=== PATIENT | male | born 1970 | race Two or more races ===

== ENCOUNTER 2016-12-27 08:40 | Emergency (ER) | payer MEDICARE ==
[~2016-12-27] VITALS: Ht 167.6 cm; Wt 85.0 kg
[2016-12-27] MEDS ORDERED: LISI10TA4 PO (09:11)
[2016-12-27] MEDS ORDERED: BUPR150T3 PO (09:11)
[2016-12-27] MEDS ORDERED: CLON0.5T PO (09:11)
[2016-12-27] MEDS ORDERED: METF500T13 PO (09:11)
[2016-12-27] MEDS ORDERED: RISP4TAB33 PO (09:11)
[2016-12-27] MEDS ORDERED: DEPA250T32 PO (09:11)
[2016-12-27] MEDS ORDERED: OMEP40CA2 PO (09:11)
[2016-12-27] MEDS ORDERED: TRAZ-136 PO (09:11)
[2016-12-27] MEDS ORDERED: MORPHINE 2 MG/ML 1ML SYRINGE IV PRN (11:00)
[2016-12-27] MEDS ORDERED: NS 1,000 ML IV ONE (11:00)
[2016-12-27] MEDS ORDERED: ONDANSETRON 4MG/2ML VIAL (J2405) IV ONE (11:00)
[2016-12-27 11:09] LABS: BASO # 0.1 K/mm3 (0.0-0.2); BASO % 0.8 % (0.0-1.0); EOS # 0.1 K/mm3 (0.0-0.50); EOS % 0.7 % (0.0-3.0); LARGE UNSTAINED CELL # 0.1 K/mm3 (0.0-0.4); LARGE UNSTAINED CELL % 0.7 % (0.0-4.0); LYMPH # 1.7 K/mm3 (1.5-4.5); LYMPH % 14.1 % (24.0-44.0); MEAN CORPUSCULAR HEMOGLOBIN 36.6 pg (27.0-33.0); MEAN CORPUSCULAR VOLUME 100.1 fl (80.0-96.0); MONO # 0.3 K/mm3 (0.0-0.8); MONO % 2.7 % (0.0-5.0); NEUTROPHILS # 9.7 K/mm3 (1.8-7.7); PLATELET COUNT, AUTOMATED 241 k/mm3 (150-450); RED CELL DISTRIBUTION WIDTH 12.3 % (11.5-14.5)
[2016-12-27 11:14] LABS: MEAN CORPUSCULAR HGB CONC 36.6 g/dl (32.0-36.5)
[2016-12-27 11:39] LABS: ALBUMIN 3.8 GM/DL (3.2-5.2); ALBUMIN/GLOBULIN RATIO 1.12 (1.00-1.93); ALKALINE PHOSPHATASE 55 U/L (45-117); ALT/SGPT 22 U/L (12-78); ANION GAP 7 MEQ/L (8-16); AST/SGOT 9 U/L (15-37); BILIRUBIN,DIRECT 0.2 MG/DL (0.0-0.2); BILIRUBIN,TOTAL 0.6 MG/DL (0.2-1.0); BLOOD UREA NITROGEN 14 MG/DL (7-18); CALCIUM LEVEL 8.7 MG/DL (8.5-10.1); CARBON DIOXIDE LEVEL 30 MEQ/L (21-32); CHLORIDE LEVEL 102 MEQ/L (98-107); CREATININE FOR GFR 0.66 MG/DL (0.70-1.30); GLOMERULAR FILTRATION RATE > 60.0 (>60); GLUCOSE, FASTING 126 MG/DL (70-105); POTASSIUM SERUM 4.1 MEQ/L (3.5-5.1); SODIUM LEVEL 139 MEQ/L (136-145); TOTAL PROTEIN 7.2 GM/DL (6.4-8.2)
[2016-12-27] MEDS ORDERED: ISOVUE-370 76% 100ML VIAL (Q9967) As Ordered ONE (11:55)
--- NOTE | 2016-12-27 12:36 | REP ---
CT abdomen and pelvis with IV but without oral contrast: History: Abdominal pain. CT contrast dose: 100 mL of Isovue [address] findings: Digital AP and lateral electronics worker views demonstrate an unremarkable bowel gas pattern. The lung bases show coarse linear opacities bilaterally consistent with plate-like atelectasis. No pleural or pericardial effusion is seen. The liver and the spleen are normal in size and homogeneous in texture. There is an accessory splenule adjacent to the tail of the pancreas. There is fatty infiltration of the liver. There is a large calcified gallstone in the gallbladder lumen measuring 2.8 cm. The pancreas is unremarkable. The kidneys enhance symmetrically and are morphologically intact. There are two renal arteries for each kidney. A normal appendix is seen in the right central abdomen. Small and large intestinal bowel loops are normal in the upper abdomen and pelvis. Prostate contains a few calcifications but is otherwise unremarkable. Seminal vesicles and urinary bladder are intact in appearance. No abdominal wall defect is seen. No bony destructive lesion is appreciated. Impression: 1. Cholelithiasis. 2. Mild fatty infiltration of the liver. 3. Bilateral lower lobe plate-like atelectasis in the lungs. 4. Normal appendix. Signed by Nestor Cortes MD 12/27/2016 12:40 P
[2016-12-27] MEDS ORDERED: PERC5TAB12 PO (13:56)
[2016-12-27 14:07] VITALS: BP 148/62
--- NOTE | 2016-12-27 19:43 | ECGEPIP ---
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
[2017-02-16] MEDS ORDERED: OXYB10TA PO (11:56)
[2017-02-16] MEDS ORDERED: PROAAER10 INH (12:20)
== END 2016-12-27 14:09 | disposition home or self-care (01) ==
LOC: M ED 08:40
DX: A08.4 Viral intestinal infection, unspecified (principal); N32.0 Bladder-neck obstruction; K80.20 Calculus of gallbladder without cholecystitis without obstruction; K76.0 Fatty (change of) liver, not elsewhere classified; J98.11 Atelectasis; E11.9 Type 2 diabetes mellitus without complications; I10 Essential (primary) hypertension; I48.91 Unspecified atrial fibrillation; K21.9 Gastro-esophageal reflux disease without esophagitis; F32.9 Major depressive disorder, single episode, unspecified; F17.210 Nicotine dependence, cigarettes, uncomplicated; Z79.899 Other long term (current) drug therapy; Z79.84 Long term (current) use of oral hypoglycemic drugs
CPT/HCPCS: 74177; 80048; 80076; 81001; 82550; 82553; 83036; 83690; 84484; 85025; 93005; 96374; 96375; 99284; J2405; Q9967

== ENCOUNTER 2017-01-01 10:43 | Emergency (ER) | payer MEDICARE ==
[~2017-01-01] VITALS: Ht 167.6 cm; Wt 81.8 kg
[~2017-01-01 10:43] MED LIST: BUPR150T3 PO; CLON0.5T PO; DEPA250T32 PO; LISI10TA4 PO; METF500T13 PO; OMEP40CA2 PO; PERC5TAB12 PO; RISP4TAB33 PO; TRAZ-136 PO
[2017-01-01] MEDS ORDERED: ONDANSETRON 4MG/2ML VIAL (J2405) IV ONE (12:15)
[2017-01-01] MEDS ORDERED: NS 1,000 ML IV ONE (12:15)
[2017-01-01] MEDS ORDERED: MORPHINE 4 MG/ML 1ML SYRINGE IV PRN (12:15)
[2017-01-01 12:44] LABS: BASO # 0.1 K/mm3 (0.0-0.2); BASO % 0.8 % (0.0-1.0); EOS % 0.4 % (0.0-3.0); LARGE UNSTAINED CELL # 0.1 K/mm3 (0.0-0.4); LARGE UNSTAINED CELL % 1.1 % (0.0-4.0); LYMPH # 2.1 K/mm3 (1.5-4.5); LYMPH % 25.7 % (24.0-44.0); MEAN CORPUSCULAR HEMOGLOBIN 36.5 pg (27.0-33.0); MEAN CORPUSCULAR HGB CONC 36.3 g/dl (32.0-36.5); MEAN CORPUSCULAR VOLUME 100.4 fl (80.0-96.0); MONO # 0.5 K/mm3 (0.0-0.8); MONO % 5.9 % (0.0-5.0); NEUTROPHILS # 5.1 K/mm3 (1.8-7.7); NEUTROPHILS % 66.2 % (36.0-66.0); PLATELET COUNT, AUTOMATED 232 k/mm3 (150-450); WHITE BLOOD COUNT 7.7 K/mm3 (4.0-10.0)
[2017-01-01 12:50] LABS: INR 1.07
--- NOTE | 2017-01-01 13:06 | REP ---
Chest one-view HISTORY: Chest pain Comparison: None The lungs are clear. The heart is normal in size. The pulmonary vasculature is normal in appearance. Impression: No acute disease. Signed by Asad Jasmine MD 01/01/2017 12:58 P
[2017-01-01 13:10] LABS: ALBUMIN 3.9 GM/DL (3.2-5.2); ALKALINE PHOSPHATASE 51 U/L (45-117); ALT/SGPT 33 U/L (12-78); AMYLASE 19 U/L (25-115); ANION GAP 11 MEQ/L (8-16); AST/SGOT 27 U/L (15-37); BILIRUBIN,DIRECT 0.3 MG/DL (0.0-0.2); BLOOD UREA NITROGEN 9 MG/DL (7-18); CALCIUM LEVEL 8.7 MG/DL (8.5-10.1); CARBON DIOXIDE LEVEL 25 MEQ/L (21-32); CHLORIDE LEVEL 106 MEQ/L (98-107); CREATININE FOR GFR 0.64 MG/DL (0.70-1.30); GLOMERULAR FILTRATION RATE > 60.0 (>60); GLUCOSE, FASTING 125 MG/DL (70-105); POTASSIUM SERUM 3.6 MEQ/L (3.5-5.1); SODIUM LEVEL 142 MEQ/L (136-145); TOTAL PROTEIN 7.4 GM/DL (6.4-8.2)
[2017-01-01 13:11] LABS: ALBUMIN/GLOBULIN RATIO 1.11 (1.00-1.93)
[2017-01-01 13:17] VITALS: BP 151/91
[2017-01-01] MEDS ORDERED: ISOVUE-370 76% 100ML VIAL (Q9967) As Ordered ONE (13:43)
--- NOTE | 2017-01-01 14:15 | REP ---
UNILATERAL LEFT LOWER EXTREMITY DUPLEX VEINS: HISTORY: Left thigh pain. There are no filling defects in the deep venous system. The deep venous system is patent. IMPRESSION: There is no deep venous thrombosis. Signed by Asad Jasmine MD 01/01/2017 02:17 P
[2017-01-01] MEDS ORDERED: MORPHINE 4 MG/ML 1ML SYRINGE IV ONE (14:30)
[2017-01-01] MEDS ORDERED: GI COCKTAIL 50ML BTL(HYOSCYAMINE/MAALOX/LIDOCAINE VISCOUS)(1:3:1) PO ONE (14:30)
--- NOTE | 2017-01-02 08:01 | REP ---
CT ANGIO CHEST: HISTORY: Chest pain. CONTRAST: Isovue 370, 100 mL. There are no filling defects in the main , right and left pulmonary arteries or their branches. The lungs are clear. There is no pleural effusion. There is no mediastinal mass. The heart is normal in size. Calcification is present in the gallbladder consistent with cholelithiasis. IMPRESSION: 1. There is no pulmonary embolism. 2. Cholelithiasis. Signed by Asad Jasmine MD 01/02/2017 08:03 A
--- NOTE | 2017-01-02 08:03 | REP ---
CT ABDOMEN AND PELVIS WITH CONTRAST: HISTORY: Pancreatitis. CONTRAST: Isovue 370, 75 mL. COMPARISON: 12/27/2016. Calcification is present in the gallbladder consistent with cholelithiasis. There is fatty infiltration of the liver. The pancreas, spleen, adrenal glands and kidneys are normal in appearance. There is no mass, adenopathy or free fluid. Linear densities are present in the lower lobes consistent with bibasilar atelectasis. The prostate gland and urinary bladder are normal in appearance. There is no free fluid in the pelvis. Minimal degenerative change is present in the spine. IMPRESSION: 1. Cholelithiasis. 2. Fatty infiltration of the liver. 3. Bibasilar atelectasis. Signed by Asad Jasmine MD 01/02/2017 08:04 A
--- NOTE | 2017-01-02 08:33 | ECGEPIP ---
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
--- NOTE | 2017-01-02 08:39 | ECGEPIP ---
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
[2017-02-16] MEDS ORDERED: OXYB10TA PO (11:56)
[2017-02-16] MEDS ORDERED: PROAAER10 INH (12:20)
== END 2017-01-01 18:07 | disposition home or self-care (01) ==
LOC: M ED 10:43
DX: R07.9 Chest pain, unspecified (principal); R10.9 Unspecified abdominal pain; R00.1 Bradycardia, unspecified; I10 Essential (primary) hypertension; E11.9 Type 2 diabetes mellitus without complications; Z87.19 Personal history of other diseases of the digestive system; F17.200 Nicotine dependence, unspecified, uncomplicated; Z79.84 Long term (current) use of oral hypoglycemic drugs; Z79.899 Other long term (current) drug therapy
CPT/HCPCS: 36415; 71010; 71275; 74177; 80048; 80076; 81001; 82150; 82550; 82553; 83605; 83690; 84484; 85025; 85610; 85730; 87040; 87086; 93005; 93041; 93971; 96361; 96374; 96375; 96376; 99285; J2405; Q9967

== ENCOUNTER → 2017-01-13 | Outpatient (CLI) | payer MEDICARE ==
[~2017-01-13] MED LIST changes: +OXYB10TA PO; +PROAAER10 INH; +PROP10TA56 PO
== END ==
LOC: M SMT 14:26
PROVIDERS: ATTEND Nurse Practitioner Women's Health
DX: Z12.5 Encounter for screening for malignant neoplasm of prostate (principal); R35.0 Frequency of micturition; R35.1 Nocturia
CPT/HCPCS: 36415; 81001; 87086; G0103; G0463

== ENCOUNTER → 2017-02-23 | Outpatient (REF) | payer MEDICARE ==
[2017-02-23 15:58] LABS: BASO # 0.1 10^3/uL (0.0-0.2); BASO % 0.5 % (0.0-1.0); IMMATURE GRANULOCYTE % 0.2 % (0-0); LYMPH # 1.6 10^3/uL (1.5-4.5); LYMPH % 16.3 % (24.0-44.0); MEAN CORPUSCULAR HEMOGLOBIN 35.8 pg (27.0-33.0); MEAN CORPUSCULAR VOLUME 96.8 fl (80.0-96.0); MONO # 0.5 10^3/uL (0.0-0.8); MONO % 4.8 % (0.0-5.0); NEUTROPHILS # 7.7 10^3/uL (1.8-7.7); NEUTROPHILS % 78.2 % (36.0-66.0); PLATELET COUNT, AUTOMATED 239 10^3/uL (150-450); RED CELL DISTRIBUTION WIDTH 11.7 % (11.5-14.5); WHITE BLOOD COUNT 9.8 10^3/uL (4.0-10.0)
[2017-02-23 16:07] LABS: INR 1.05
[2017-02-23 16:24] LABS: ANION GAP 8 MEQ/L (8-16); BLOOD UREA NITROGEN 11 MG/DL (7-18); CALCIUM LEVEL 9.8 MG/DL (8.5-10.1); CARBON DIOXIDE LEVEL 27 MEQ/L (21-32); CHLORIDE LEVEL 103 MEQ/L (98-107); CREATININE FOR GFR 0.73 MG/DL (0.70-1.30); GLOMERULAR FILTRATION RATE > 60.0 (>60); GLUCOSE, FASTING 112 MG/DL (70-105); POTASSIUM SERUM 3.9 MEQ/L (3.5-5.1); SODIUM LEVEL 138 MEQ/L (136-145)
== END ==
LOC: M SFHCPLAZ 11:45
PROVIDERS: ATTEND Family Medicine
DX: Z01.818 Encounter for other preprocedural examination (principal); K80.20 Calculus of gallbladder without cholecystitis without obstruction
CPT/HCPCS: 80048; 85025; 85610; 93005; G0463

== ENCOUNTER 2017-03-02 06:46 | Day surgery (SDC) | payer MEDICARE ==
[~2017-03-02] VITALS: Ht 167.6 cm; Wt 77.5 kg
[~2017-03-02 06:46] MED LIST changes: -PROP10TA56 PO
[2017-03-02] MEDS ORDERED: LR 1,000 ML IV SCH ×2 (07:00→10:30)
[2017-03-02] MEDS ORDERED: PROP10TA56 PO (07:47)
[2017-03-02] MEDS ORDERED: BUPIVACAINE/EPIN 0.25% 30 ML VIAL As Ordered ONE (08:05)
[2017-03-02] MEDS ORDERED: fentaNYL 100 MCG/2 ML INJECTION (J3010) As Ordered ONE ×2 (08:12→09:32)
[2017-03-02] MEDS ORDERED: ROCURONIUM BROMIDE 50 MG/5 ML VIAL/SYRINGE As Ordered ONE (08:12)
[2017-03-02] MEDS ORDERED: MIDAZOLAM INJ 2 MG/2 ML VIAL (J2250) As Ordered ONE (08:13)
[2017-03-02] MEDS ORDERED: GLYCOPYRROLATE INJ 0.2 MG/ML 2 ML VIAL As Ordered ONE (09:26)
[2017-03-02] MEDS ORDERED: ONDANSETRON 4MG/2ML VIAL (J2405) As Ordered ONE (09:26)
[2017-03-02] MEDS ORDERED: NEOSTIGMINE 10 MG/10 ML VIAL (J2710) As Ordered ONE (09:26)
[2017-03-02] MEDS ORDERED: PERCOCET 5MG/325MG TAB As Ordered ONE (10:12)
[2017-03-02] MEDS: PERCOCET 5MG/325MG TAB PO PRN ×2 (10:13→10:39)
[2017-03-02] MEDS ORDERED: NORCO, ANEXSIA 5/325MG TABLET (HYDROcodone/ACETAMINOPHEN) PO PRN (10:30)
[2017-03-02] MEDS ORDERED: KETOROLAC 30 MG/ML VIAL (J1885) IV PRN (10:30)
[2017-03-02] MEDS ORDERED: fentaNYL 100 MCG/2 ML INJECTION (J3010) IV PRN (10:30)
[2017-03-02] MEDS ORDERED: ONDANSETRON 4MG/2ML VIAL (J2405) IV PRN (10:30)
[2017-03-02 11:20] VITALS: BP 124/84
--- NOTE | 2017-03-04 08:18 | RO ---
DATE OF PROCEDURE: 03/02/2017 PREOPERATIVE DIAGNOSIS: Symptomatic cholelithiasis. POSTOPERATIVE DIAGNOSIS: Symptomatic cholelithiasis. PROCEDURE: Laparoscopic cholecystectomy. SURGEON: Dr. Reji Infante TERMITE CONTROL TECHNICIAN: None. ANESTHESIA: General. ESTIMATED BLOOD LOSS: 5. COMPLICATIONS: None. INDICATION FOR PROCEDURE: Patient is a 46-year-old male, presents with history right upper quadrant abdominal pain, found to have symptomatic cholelithiasis. Recommendation is to proceed with laparoscopic, possible open cholecystectomy. Risks and benefits of procedure not limited to, but including bleeding, infection, hernia formation, damage to surrounding structure, need for further surgery were discussed in detail with patient. Informed consent was obtained, and procedure was planned. DESCRIPTION OF PROCEDURE: Patient brought back to operating room #3. After sufficient sedation, the abdomen was sterilely prepped and draped. Next, time-out was done to confirm proper patient and proper procedure. Following that, 5 mm stab incision was made in left upper quadrant. Veress needle was inserted, and the abdomen was insufflated 50 mmHg. Next, 5 mm infraumbilical incision was made. A 5 mm Optiview port was used to gain access to the abdomen. Once entering the abdomen, Veress needle site was examined. There were no signs of any injury. Veress needle was removed, 11 mm port placed subxiphoid. Two 5 mm ports in right upper quadrant. Gallbladder was grasped by the fundus and elevated up towards the right shoulder. Cystic duct and cystic artery were carefully dissected free using combination of blunt and sharp dissection. Once they were both clearly identified, they were both doubly clipped and cut. Gallbladder was then removed from the gallbladder fossa using electrocautery. Once the gallbladder was removed, the right upper quadrant was examined to confirm hemostasis. Abdomen was then desufflated. Skin incision closed with #4-0 Vicryl subcuticular sutures. The abdomen was cleaned and dried. Steri-Strips, 4 x 4, and tape were applied, thus ending procedure.
== END 2017-03-02 12:15 | disposition home or self-care (01) ==
LOC: M SDC 06:46
PROVIDERS: ATTEND Surgery
DX: K80.10 Calculus of gallbladder with chronic cholecystitis without obstruction (principal); I10 Essential (primary) hypertension; F41.9 Anxiety disorder, unspecified; E11.9 Type 2 diabetes mellitus without complications; N40.0 Benign prostatic hyperplasia without lower urinary tract symptoms; J45.909 Unspecified asthma, uncomplicated; F31.9 Bipolar disorder, unspecified; Z79.899 Other long term (current) drug therapy; Z79.84 Long term (current) use of oral hypoglycemic drugs; Z72.0 Tobacco use
CPT/HCPCS: 47562; 88304; J0690; J2250; J2405; J2710; J3010